=== PATIENT | female | born 1960 | race Caucasian/White ===

== ENCOUNTER 2019-02-18 20:25 | Emergency (ER) | payer SELFPAY ==
--- NOTE | 2019-02-18 21:14 | ER ---
Nurse's Notes [facility] Name: Judit Jewell Age: 58 yrs Sex: Female : 1960 Arrival Date: 02/18/2019 Time: 20:29 Bed 5 Private MD: Diagnosis: Vaginitis, vulvitis and vulvovaginitis in diseases classified elsewhere Presentation: 02/18 20:33 Presenting complaint: Patient states: Pelvic pain and discharge for about a month. some la1 spotting as well. Transition of care: patient was not received from another setting of care. Onset of symptoms was February 18, 2019. Risk Assessment: Do you want to hurt yourself or someone else? Patient reports no desire to harm self or others. Initial Sepsis Screen: Does the patient meet any 2 criteria? No. Patient's initial sepsis screen is negative. Does the patient have a suspected source of infection? No. Patient's initial sepsis screen is negative. Care prior to arrival: None. 20:33 Method Of Arrival: Ambulatory la1 20:33 Acuity: BRYAN 3 la1 Historical: - Allergies: 20:34 No Known Allergies; la1 - PMHx: 20:34 None; la1 - Immunization history:: Adult Immunizations up to date. - Social history:: Smoking status: Patient uses tobacco products, smokes one-half pack cigarettes per day. - Ebola Screening: : No symptoms or risks identified at this time. Screenin:10 Abuse screen: Denies threats or abuse. Nutritional screening: No deficits noted. ea Tuberculosis screening: No symptoms or risk factors identified. Fall Risk None identified. Assessment: 21:08 General: Appears in no apparent distress. Behavior is calm, cooperative, appropriate ea for age. Pain: Complains of pain in suprapubic area Pain currently is 3 out of 10 on a pain scale. Quality of pain is described as crampy. Neuro: Level of Consciousness is awake, alert, obeys commands, Oriented to person, place, time, situation. Cardiovascular: Patient's skin is warm and dry. Respiratory: Airway is patent Respiratory effort is even, unlabored, Respiratory pattern is regular, symmetrical. Derm: Skin is pink, warm \T\ dry. Musculoskeletal: Circulation, motion, and sensation intact. 21:50 Reassessment: Patient and/or family updated on plan of care and expected duration. Pain ea level reassessed. Patient is alert, oriented x 3, equal unlabored respirations, skin warm/dry/pink. Discharge instruction given to patient, verbalized the understanding of instruction. Pt left ED ambulatory, tolerating well. Vital Signs: 20:34 BP 155 / 100; Pulse 90; Resp 16; Temp 99.7(O); Pulse Ox 98% on R/A; Weight 63.5 kg; la1 Height 5 ft. 6 in. (167.64 cm); 21:10 BP 104 / 84; Pulse 84; Resp 18; Pulse Ox 100% on R/A; ea 20:34 Body Mass Index 22.60 (63.50 kg, 167.64 cm) la1 ED Course: 20:29 Patient arrived in ED. am2 20:34 Triage completed. la1 20:34 Arm band placed on left wrist. la1 20:48 Randal Marie MD is Attending Physician. 21:08 Kanwal Jarrett RN is Primary Nurse. ea 21:11 Patient has correct armband on for positive identification. Bed in low position. Call ea light in reach. Side rails up X 1. 21:50 Patient did not have IV access during this emergency room visit. ea 21:56 No provider procedures requiring assistance completed. ea Administered Medications: 21:15 Not Given (Other Intervention Used): Rocephin - (cefTRIAXone) 1 grams IVPB once over 30 jd3 mins; (mix in 50 mL NS) 21:26 Drug: Zithromax 1 grams Route: PO; jd3 21:50 Follow up: Response: No adverse reaction ea 21:26 Drug: Rocephin (cefTRIAXone) 1 grams Route: IM; Site: right gluteus; jd3 21:50 Follow up: Response: No adverse reaction ea Outcome: 21:14 Discharge ordered by . gs 21:50 Discharged to home ambulatory. ea 21:50 Condition: good 21:50 Discharge instructions given to patient, Instructed on discharge instructions, follow up and referral plans. medication usage, Demonstrated understanding of instructions, follow-up care, medications, Prescriptions given X 1. 21:55 Patient left the ED. ea Signatures: Kodi Paieg RN RN la1 Serena Merida am2 Kanwal Jarrett RN RN ea Starr, Gregory, MD MD gs Davies, Jonathon, RN RN jd3
--- NOTE | 2019-02-18 21:15 | EDPHYS ---
Physician Documentation [facility] Name: Judit Jewell Age: 58 yrs Sex: Female : 1960 Arrival Date: 02/18/2019 Time: 20:29 Bed 5 Private MD: ED Physician Randal Marie HPI: 02/18 21:08 This 58 yrs old Female presents to ER via Ambulatory with complaints of gs Vaginal Discharge, Pelvic Pain. 21:08 The patient presents with vaginal discharge. Onset: The symptoms/episode began/occurred gs 2 week(s) ago. Modifying factors: The symptoms are alleviated by nothing, the symptoms are aggravated by nothing. Associated signs and symptoms: Pertinent negatives: vaginal bleeding, vomiting. Severity of symptoms: At their worst the symptoms were moderate, in the emergency department the symptoms are unchanged. The patient has experienced similar episodes in the past, a few times. Historical: - Allergies: 20:34 No Known Allergies; la1 - PMHx: 20:34 None; la1 - Immunization history:: Adult Immunizations up to date. - Social history:: Smoking status: Patient uses tobacco products, smokes one-half pack cigarettes per day. - Ebola Screening: : No symptoms or risks identified at this time. ROS: 21:08 All other systems are negative. gs Exam: 21:08 Head/Face: Normocephalic, atraumatic. Eyes: Pupils equal round and reactive to light, gs extra-ocular motions intact. Lids and lashes normal. Conjunctiva and sclera are non-icteric and not injected. Cornea within normal limits. Periorbital areas with no swelling, redness, or edema. ENT: Nares patent. No nasal discharge, no septal abnormalities noted. Tympanic membranes are normal and external auditory canals are clear. Oropharynx with no redness, swelling, or masses, exudates, or evidence of obstruction, uvula midline. Mucous membranes moist. Neck: Trachea midline, no thyromegaly or masses palpated, and no cervical lymphadenopathy. Supple, full range of motion without nuchal rigidity, or vertebral point tenderness. No Meningismus. Chest/axilla: Normal chest wall appearance and motion. Nontender with no deformity. No lesions are appreciated. Cardiovascular: Regular rate and rhythm with a normal S1 and S2. No gallops, murmurs, or rubs. Normal PMI, no JVD. No pulse deficits. Respiratory: Lungs have equal breath sounds bilaterally, clear to auscultation and percussion. No rales, rhonchi or wheezes noted. No increased work of breathing, no retractions or nasal flaring. Back: No spinal tenderness. No costovertebral tenderness. Full range of motion. Skin: Warm, dry with normal turgor. Normal color with no rashes, no lesions, and no evidence of cellulitis. MS/ Extremity: Pulses equal, no cyanosis. Neurovascular intact. Full, normal range of motion. Neuro: Awake and alert, GCS 15, oriented to person, place, time, and situation. Cranial nerves II-XII grossly intact. Motor strength 5/5 in all extremities. Sensory grossly intact. Cerebellar exam normal. Normal gait. 21:08 Constitutional: The patient appears alert, awake. 21:08 Abdomen/GI: Palpation: mild abdominal tenderness, in the suprapubic area, right lower quadrant and left lower quadrant, rebound tenderness, is not appreciated. 21:08 : Pelvic Exam: The exam is refused by the patient/guardian. The risks and gs consequences are understood by the patient, the exam is deferred. Vital Signs: 20:34 BP 155 / 100; Pulse 90; Resp 16; Temp 99.7(O); Pulse Ox 98% on R/A; Weight 63.5 kg; la1 Height 5 ft. 6 in. (167.64 cm); 21:10 BP 104 / 84; Pulse 84; Resp 18; Pulse Ox 100% on R/A; ea 20:34 Body Mass Index 22.60 (63.50 kg, 167.64 cm) la1 MDM: 20:58 Patient medically screened. gs 21:08 Differential diagnosis: cervicitis, pelvic inflammatory disease. Data reviewed: vital gs signs, nurses notes. 21:08 Counseling: I had a detailed discussion with the patient and/or guardian regarding: the gs historical points, exam findings, and any diagnostic results supporting the discharge/admit diagnosis, the need for outpatient follow up. 02/18 21:06 Order name: GC (Hussein/Chl) Probe URINE EDMS 02/18 21:12 Order name: Urine Dipstick--Ancillary (enter results) [id number] Administered Medications: 21:15 Not Given (Other Intervention Used): Rocephin - (cefTRIAXone) 1 grams IVPB once over 30 jd3 mins; (mix in 50 mL NS) 21:26 Drug: Zithromax 1 grams Route: PO; jd3 21:50 Follow up: Response: No adverse reaction ea 21:26 Drug: Rocephin (cefTRIAXone) 1 grams Route: IM; Site: right gluteus; jd3 21:50 Follow up: Response: No adverse reaction ea Disposition: 02/18/19 21:14 Discharged to Home. Impression: Vaginitis, vulvitis and vulvovaginitis in diseases classified elsewhere. - Condition is Stable. - Discharge Instructions: Bacterial Vaginosis, Vaginitis. - Prescriptions for Flagyl 500 mg Oral Tablet - take 1 tablet by ORAL route every 12 hours for 5 days; 10 tablet. - Medication Reconciliation Form, Thank You Letter, Antibiotic Education, Prescription Opioid Use form. - Follow up: Private Physician; When: 2 - 3 days; Reason: Re-evaluation by your physician. Signatures: Dispatcher [employer] EDMS Kodi Paige RN RN la1 Kanwal Jarrett RN RN ea Starr, Gregory, MD MD gs Davies, Jonathon, RN RN jd3 Corrections: (The following items were deleted from the chart) 21:55 21:14 02/18/2019 21:14 Discharged to Home. Impression: Vaginitis, vulvitis and ea vulvovaginitis in diseases classified elsewhere. Condition is Stable. Forms are Medication Reconciliation Form, Thank You Letter, Antibiotic Education, Prescription Opioid Use. Follow up: Private Physician; When: 2 - 3 days; Reason: Re-evaluation by your physician. gs
[2019-02-18] MEDS ORDERED: AZITHROMYCIN 250 MG TAB ONE (21:28)
[2019-02-18] MEDS ORDERED: CEFTRIAXONE 1000 MG/VIAL ONE (21:28)
[2019-02-18 21:34] LABS: Urine Blood TRACE (NEG); Urine Glucose TRACE (NEG); Urine Protein 1+ (NEG); Urine Specific Gravity 1.025 (1.005-1.030)
[2019-02-22 11:30] LABS: C.trachomatis RNA,TMA Detected (Not Detected)
== END 2019-02-18 21:55 | disposition home or self-care (01) ==
LOC: ER 20:25
DX: N76.0 Acute vaginitis (principal); F17.210 Nicotine dependence, cigarettes, uncomplicated
CPT/HCPCS: 81003; 87490; 87590; 96372; 99283